=== PATIENT | female | born 1985 | race Caucasian/White ===

== ENCOUNTER 2018-02-02 22:04 | Inpatient (IN) | payer BC ==
--- NOTE | 2018-02-02 22:51 | HP ---
General Information - General Information Maternal Age: 32 Grav: 1 Para: 0 Estimated Due Date: 02/02/18 Determined By: LMP Maternal Blood Type and Rh: B Positive - Results this Serology/RPR Result: Non-Reactive Rubella Result: Immune HBsAg Result: Negative HIV Result: Negative GBS Culture Result: Negative Past Medical History Pertinent Past Medical History: Non-Contributory Past Medical History Comment: migraine Past Surgical History Comment: wisdom tooth extraction Pertinent Family History: See Records - Antepartal Records Antepartal Records: Reviewed, Complicated by: - pt carrier of several conditions, FOB not a carrier Review of Systems Constitutional: Uncomfortable CV Complaint: No Respiratory: Shortness of Breath: No Gastrointestinal: No Nausea/Vomiting Genitourinary: No Leaking Fluid Musculoskeletal: Contractions Neurological: No Headache Movement: Normal - Comments wants epidural Exam 98.2-68-18 99/65 - Measurements Height: 5 ft 4 in Weight: 167 lb Body Mass Index (BMI): 28.6 Pre- Weight: 140 lb - Exam Abdomen: No Upper Quadrant Pain Breast: - - soft, no masses CVA: No CVA Tenderness Extremities: No Edema Heart: Normal Rhythm/Heart Sounds HEENT: No Significant Findings Lungs: Clear Bilaterally Reflexes: DTR 2+ Thyroid: No Thyromegaly - Cervical Exam 7cm, 100%, vtx -1, bulging membranes - Abdominal Exam Abdomen Exam Comment: EFw 7.5 lbs - Membranes Membrane Status: Intact - Ultrasound/Biophysical Profile Ultrasound Status: Not Done EFM Findings - External Monitor Findings Baseline Heart Rate: 140 External Monitor Findings: Accelerations Present, No Pattern of Variable or Late Decelerations, Variability Moderate External Monitor Findings Comment: category 1 Contractions: Regular, Strong, 45-90 Seconds Contraction Frequency: every 2-3 minutes Assessment/Plan - Reason for Visit Reason for Visit: labor - Plan Plan: Active Labor Plan Comment: will admit, anticipate vaginal delivery Dr. Prater notified, will come to do epidural - Date/Time of Admission Date of Admission: 02/02/18 Time of Admission: 22:30
[2018-02-02] MEDS ORDERED: OBEPIDURAL* 250 ML EPIDURAL ONE (22:53)
[2018-02-02 22:59] LABS: ABS Basophils 0 10^3/ul (0-0.2); ABS Eosinophils 0.1 10^3/ul (0-0.6); ABS Lymphocytes 3.2 10^3/ul (1.0-4.8); ABS Monocytes 1.2 10^3/ul (0-0.8); ABS Neutrophils 10.7 10^3/ul (1.5-7.7); ABS Nucleated RBC 0 10^3/ul; Eosinophil % 0.4 % (0-6); Hematocrit 35 % (35-47); Hemoglobin 12.4 g/dl (12.0-16.0); Lymphocyte % 21.3 % (25-47); Mean Corpuscular HGB Conc 35 g/dl (31-36); Mean Corpuscular Hemoglobin 32 pg (27-31); Mean Corpuscular Volume 91 fL (80-97); Mean Platelet Volume 8.2 um3 (7.4-10.4); Nucleated Red Blood Cells % 0; Platelet Count 270 10^3/ul (150-450); Red Blood Count 3.86 10^6/ul (4.0-5.4); Red Cell Distribution Width 13 % (10.5-15); White Blood Count 15.1 10^3/ul (3.5-10.8)
[2018-02-02] MEDS ORDERED: EPHEDrine (Pressors)* 50 MG/ML VIAL IV PUSH PRN ×2 (23:38)
[2018-02-02] MEDS ORDERED: Phenylephrine IV* 40 MCG/ML 10 ML SYRINGE IV PUSH PRN ×2 (23:38)
[2018-02-02] MEDS ORDERED: Sodium Citrate/Citric Acid* 15 ML UDC PO PRN (23:38)
[2018-02-02] MEDS ORDERED: Famotidine TAB* 20 MG PO PRN (23:38)
[2018-02-02] MEDS ORDERED: OBEPIDURAL* 250 ML EPIDURAL SCH (23:45)
[2018-02-03] MEDS ORDERED: Oxytocin in LR* 20 UNITS/1,000 ML BAG IVPB ONE (01:01)
[2018-02-03] MEDS ORDERED: Oxytocin in LR* 20 UNITS/1,000 ML BAG IVPB SCH ×2 (02:00→05:00)
[2018-02-03] MEDS ORDERED: Lidocaine/Epinephrin 1.5%/200* 5 ML AMP INJ ONE (03:17)
[2018-02-03] MEDS ORDERED: Glycerin ADULT SUPP PR PRN (04:19)
[2018-02-03] MEDS ORDERED: Witch Hazel PAD* JAR TOPICAL PRN (04:19)
[2018-02-03] MEDS ORDERED: Dibucaine 1% 28.35 GM TUBE PR PRN (04:19)
[2018-02-03] MEDS ORDERED: Acetaminophen TAB* 325 MG PO PRN (04:19)
[2018-02-03] MEDS: Docusate CAP* 100 MG PO SCH ×3 (08:44→20:44)
[2018-02-03] MEDS: Ibuprofen TAB* 600 MG PO PRN ×2 (08:46→15:48)
[2018-02-03] MEDS: Simethicone TAB* 80 MG TAB.CHEW PO SCH ×2 (08:47→12:30)
[2018-02-03] MEDS ORDERED: oxyCODONE/Acetamin 5/325 MG* TAB PO PRN (20:36)
[2018-02-04] MEDS: Ibuprofen TAB* 600 MG PO PRN ×3 (01:20→14:32)
--- NOTE | 2018-02-04 05:37 | PTEDU ---
Patient Name: PEDRO CUELLO CUELLOPEDRO selected video: Follow Me Mum: [facility] Successful to view on 02/05/20 at 5:36:02 AM [place] [facility] [id number]
[2018-02-04 07:02] LABS: ABS Basophils 0 10^3/ul (0-0.2); ABS Eosinophils 0.1 10^3/ul (0-0.6); ABS Lymphocytes 3.5 10^3/ul (1.0-4.8); ABS Neutrophils 8.4 10^3/ul (1.5-7.7); ABS Nucleated RBC 0 10^3/ul; Eosinophil % 0.7 % (0-6); Hematocrit 31 % (35-47); Hemoglobin 10.8 g/dl (12.0-16.0); Lymphocyte % 27.1 % (25-47); Mean Corpuscular HGB Conc 35 g/dl (31-36); Mean Corpuscular Hemoglobin 33 pg (27-31); Mean Corpuscular Volume 92 fL (80-97); Mean Platelet Volume 8.5 um3 (7.4-10.4); Nucleated Red Blood Cells % 0.1; Platelet Count 228 10^3/ul (150-450); Red Blood Count 3.32 10^6/ul (4.0-5.4); Red Cell Distribution Width 13 % (10.5-15)
[2018-02-04 08:43] VITALS: BP 100/58
[2018-02-04] MEDS: Docusate CAP* 100 MG PO SCH ×2 (08:45→14:25)
[2018-02-04] MEDS ORDERED: Ferrous Gluconate TAB* 324 MG TAB PO SCH (09:00)
== END 2018-02-04 18:20 | disposition home or self-care (01) | DRG 560 ==
LOC: MCHOBOUT 22:04 → MCHOB 22:33
PROVIDERS: ADMIT Midwife; ATTEND Obstetrics & Gynecology
PROC: 10D07Z3 Extraction of Products of Conception, Low Forceps, Via Natural or Artificial Opening (ICD-10-PCS; principal; 2018-02-03)
PROC: 0KQM0ZZ Repair Perineum Muscle, Open Approach (ICD-10-PCS; 2018-02-03)
DX: O48.0 Post-term pregnancy (principal); E72.11 Homocystinuria; O70.1 Second degree perineal laceration during delivery; O99.284 Endocrine, nutritional and metabolic diseases complicating childbirth; O63.1 Prolonged second stage (of labor); Z3A.40 40 weeks gestation of pregnancy; Z37.0 Single live birth
CPT/HCPCS: 36415; 85025; 86850; 86900; 86901; A9270-GY

== ENCOUNTER 2018-08-06 10:35 | Emergency (ER) | payer BC ==
[2018-08-06 10:42] VITALS: BP 126/78
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
== END 2018-08-06 11:19 | disposition home or self-care (01) ==
LOC: UCEAST 10:35
DX: T24.111A Burn of first degree of right thigh, initial encounter (principal); T31.0 Burns involving less than 10% of body surface; X11.8XXA Contact with other hot tap-water, initial encounter; Y93.G9 Activity, other involving cooking and grilling; Y92.9 Unspecified place or not applicable
CPT/HCPCS: 99212; G0463

== ENCOUNTER 2019-02-27 20:40 | Emergency (ER) | payer BC ==
[2019-02-27 20:54] VITALS: BP 115/77
[2019-02-27] MEDS ORDERED: Cephalexin CAP* 500 MG PO ONE (21:03)
--- NOTE | 2019-02-27 21:13 | UC ---
Skin Complaint HPI - HPI Summary HPI Summary: 33-year-old female presents with complaints of a red swollen area to her right upper arm. States symptoms began 3 days ago. Initially appeared like a "pimple ". States over the last 2 days to redness has progressively increased. No known injury. Denies fever, chills, or drainage. Patient is presently breast- feeding. - History of Current Complaint Chief Complaint: UCSkin Time Seen by Provider: 02/27/19 20:56 Stated Complaint: SKIN COMPLAINT Hx Obtained From: Patient Hx Last Menstrual Period: ; no period since April 2017 Pain Intensity: 0 - Allergy/Home Medications Allergies/Adverse Reactions: Allergies Allergy/AdvReac Type Severity Reaction Status Date / Time No Known Allergies Allergy Verified 02/03/18 00:47 PMH/Surg Hx/FS Hx/Imm Hx Previously Healthy: Yes - Denies significant PMH - Surgical History Surgical History: None Surgery Procedure, Year, and Place: denies - Family History Known Family History: Positive: Diabetes - Social History Occupation: Employed Full-time Lives: With Family Alcohol Use: Weekly Substance Use Type: None Smoking Status (MU): Never Smoked Tobacco - Immunization History Most Recent Influenza Vaccination: 07/04/17 Most Recent Tetanus Shot: UTD Most Recent Pneumonia Vaccination: none Review of Systems All Other Systems Reviewed And Are Negative: Yes Constitutional: Negative: Fever, Chills Skin: Positive: Other - See HPI Respiratory: Positive: Negative Cardiovascular: Positive: Negative Gastrointestinal: Positive: Negative Genitourinary: Positive: Negative Musculoskeletal: Positive: Negative Neurological: Positive: Negative Is Patient Immunocompromised?: No Physical Exam - Summary Physical Exam Summary: GENERAL APPEARANCE: Well developed, well nourished, alert and cooperative, and appears to be in no acute distress. CARDIAC: Normal S1 and S2. No S3, S4 or murmurs. Rhythm is regular. There is no peripheral edema, cyanosis or pallor. Extremities are warm and well perfused. Capillary refill is less than 2 seconds. Peripheral pulses intact. LUNGS: Clear to auscultation without rales, rhonchi, wheezing or diminished breath sounds. ABDOMEN: Positive bowel sounds. Soft, nondistended, nontender. No guarding or rebound. No masses or hepatosplenomegally. MUSKULOSKELETAL: ROM intact to all extremities. No joint erythema or tenderness. Normal muscular development. Normal gait. SKIN: 1 cm circular area of tender induration with erythema extending initial 2.5 cm around the outer margin of the induration. Mildly warm to touch, no fluctuance noted. Triage Information Reviewed: Yes Vital Signs: Initial Vital Signs Temp 99.3 F 02/27/19 20:50 Pulse 65 02/27/19 20:50 Resp 16 02/27/19 20:50 BP 115/77 02/27/19 20:50 Pulse Ox 100 02/27/19 20:50 Vital Signs Reviewed: Yes Course/Dx - Course Course Of Treatment: 33-year-old female presents with complaints of a red swollen area to her right upper arm. States symptoms began 3 days ago. Initially appeared like a "pimple ". States over the last 2 days to redness has progressively increased. No known injury. Denies fever, chills, or drainage. Patient is presently breast- feeding. Afebrile. Vital signs stable. Exam reveals a 1 cm circular area of tender induration with erythema extending initial 2.5 cm around the outer margin of the induration. Mildly warm to touch, no fluctuance noted. I will start her on cephalexin 500 mg 4 times a day 5 days for a cellulitis secondary to folliculitis. She was given the first dose in the clinic and provided a dose from the morning until she can crop picker the prescription from the pharmacy. She is to use [id number] analgesics as needed for pain and I am recommending hot packing as well. She is to return here or follow up with her primary care provider in 3 days if no improvement in her symptoms. Anticipatory guidance and warning symptoms were reviewed with the patient. Verbalizes understanding and agrees with plan of care. - Differential Diagnoses - Skin Complaint Differential Diagnoses: Cellulitis, Local Allergic Reaction, MRSA - Diagnoses Provider Diagnosis: Cellulitis of right arm Discharge - Sign-Out/Discharge Documenting (check all that apply): Patient Departure All imaging exams completed and their final reports reviewed: No Studies - Discharge Plan Condition: Stable Disposition: HOME Prescriptions: Cephalexin CAP* [Keflex 500 CAP*] 500 mg PO QID #18 cap Patient Education Materials: Cellulitis (ED) Referrals: Joanne Mullins MD [Primary Care Provider] - 3 Days Additional Instructions: You appear to have an infection of the skin called cellulitis secondary to an infected hair follicle. We will start you on an antibiotic to treat the infection. Take cephalexin 500 mg 1 capsule four times a day for 5 days. We gave you the first dose in the clinic tonight and provided you with a dose for in the morning. To a hot moist compress to the affected area at least 4 times a day to help promote any drainage. Take [id number] acetaminophen (Tylenol) or ibuprofen (3 Advil, Motrin) according to directions as needed for pain. Return here with your primary care provider in 3 days if symptoms are not improving. Seek immediate medical attention in the emergency room if you develop fever greater than 100.5 F, the redness continues to spread, you have increased swelling, pain that is not managed by the pain medication, or any worsening of symptoms. - Billing Disposition and Condition Condition: STABLE Disposition: Home - Attestation Statements Provider Attestation: I was available for consult. Pt not seen by me.
== END 2019-02-27 21:30 | disposition home or self-care (01) ==
LOC: UCEAST 20:40
DX: L03.113 Cellulitis of right upper limb (principal)
CPT/HCPCS: 99212; A9270-GY; G0463

== ENCOUNTER 2020-02-11 08:17 | Inpatient (IN) | payer BC ==
[2020-02-11] MEDS ORDERED: Buffered Lidocaine 1% SYRIN* 1 ML/SYRINGE INTRADERM ONE (09:11)
[2020-02-11] MEDS ORDERED: Lactated Ringers 1000 ML Bag* 1,000 ML IV ONE ×2 (09:11→10:41)
[2020-02-11] MEDS ORDERED: Oxytocin in LR* 20 UNITS/1,000 ML BAG IVPB ONE (09:13)
--- NOTE | 2020-02-11 09:19 | HP ---
General Information - Reason for Visit 34yo, , IUP@40+1 here for an elective IOL - General Information Maternal Age: 34 Grav: 2 Para: 0 SAB: 0 IEA: 0 Estimated Due Date: 02/10/20 Determined By: LMP Gestational Age in Weeks/Days: 40+1 Maternal Blood Type and Rh: B Positive - Results this Serology/RPR Result: Non-Reactive Rubella Result: Immune HBsAg Result: Negative HIV Result: Negative GBS Culture Result: Negative Past Medical History Delivery History: Hx Complicated Vaginal Delivery - prolonged second stage, low forcep delivery Pertinent Past Medical History: See Records Past Medical History Comment: Migraine - with aura Pertinent Past Surgical History: See Records Past Surgical History Comment: wisdom tooth extraction Pertinent Family History: See Records Family History Comment: Father: hypercholesterolemia, back issues, obesity (s/p gastric sleeve) Mother: Migraine, lung cancer (remission), arthritis, hypothyroidism PGM: ovarian cancer MGM: ovarian cancer MGF: CAD - Antepartal Records Antepartal Records: Reviewed, Uncomplicated Review of Systems Constitutional: Comfortable CV Complaint: No Respiratory: Shortness of Breath: No Gastrointestinal: No Nausea/Vomiting Genitourinary: No Dysuria, No Bleeding, No Leaking Fluid Musculoskeletal: Contractions - occasional Neurological: No Headache, No Visual Changes Movement: Normal Exam Allergies/Adverse Reactions: Allergies No Known Allergies Allergy (Verified 02/03/18 00:47) Temp 98.3 HR 68, BP 129/86, RR 17, O2 100% - Measurements Height: 5 ft 4 in Weight: 166 lb Weight in lbs: 166.003598 Body Mass Index (BMI): 28.5 Pre- Weight: 140 lb Weight Gained This : 26 lbs and 0 ozs - Exam Breast: Breast Exam Deferred CVA: No CVA Tenderness Extremities: Edema HEENT: No Significant Findings Rectal: Rectal Exam Deferred - Abdominal Exam Abdomen Exam: Non-Tender - Ultrasound/Biophysical Profile Ultrasound Status: Not Done Targeted Exam Findings Estimated Weight: 7lbs Cervical Exam: 3cm Effacement: 80% Station: -1 Presenting Part: Vertex Membrane Status: AROM Bleeding/Discharge: None EFM Findings - External Monitor Findings Baseline Heart Rate: 145 External Monitor Findings: Accelerations Present, No Pattern of Variable or Late Decelerations, Variability Moderate, Baseline Stable External Monitor Findings Comment: No evidence of metabolic acidemia Contractions: Irregular Assessment/Plan - Assessment , IUP@40+1, here for an elective IOL GBS negative, B+, RI Uncomplicated , hx of low forceps delivery Vital signs stable No evidence of metabolic acidemia Occasional contraction PARQ discussion about IOL. Agrees to AROM and Pitocin. IV, labs, start low-dose pitocin. Monitor per protocol. Desires Epidural when uncomfortable. Dr. Asher to special. Anticipate progression to active labor and - Plan Plan: Admit - Anticipate Vaginal Delivery - Date/Time of Admission Date of Admission: 02/11/20 Time of Admission: 08:00
[2020-02-11] MEDS ORDERED: Lactated Ringers 1000 ML Bag* 1,000 ML IV SCH ×3 (10:00→14:00)
[2020-02-11] MEDS ORDERED: Oxytocin in LR* 20 UNITS/1,000 ML BAG IVPB SCH ×2 (10:00→14:00)
[2020-02-11 10:10] LABS: ABS Eosinophils 0.1 10^3/ul (0-0.6); ABS Lymphocytes 2.1 10^3/ul (1.0-4.8); ABS Monocytes 0.8 10^3/ul (0-0.8); ABS Neutrophils 5.7 10^3/ul (1.5-7.7); Eosinophil % 0.7 %; Hematocrit 36 % (35-47); Hemoglobin 12.6 g/dL (12.0-16.0); Mean Corpuscular HGB Conc 35 g/dL (31-36); Mean Corpuscular Hemoglobin 32 pg (27-31); Mean Corpuscular Volume 92 fL (80-97); Mean Platelet Volume 9.4 fL (7.4-10.4); Platelet Count 245 10^3/uL (150-450); Red Blood Count 3.87 10^6 /uL (3.70-4.87); Red Cell Distribution Width 14 % (10-15); White Blood Count 8.8 10^3/uL (3.5-10.8)
--- NOTE | 2020-02-11 10:12 | PN ---
Progress Note - Progress Note Date of Service: 02/11/20 Note: Called by RN, pt becoming more uncomfortable. Pt would like epidural now. Anesthesia notified. Waiting on CBC.
[2020-02-11] MEDS ORDERED: OBEPIDURAL* 250 ML EPIDURAL ONE (10:13)
[2020-02-11] MEDS ORDERED: Bupivacaine 0.25% SDV PF* 10 ML VIAL INJ ONE (10:15)
[2020-02-11 10:37] LABS: Urine Benzodiazepine Screen None Detected (None Detect); Urine Opiates Screen None Detected (None Detect)
[2020-02-11] MEDS ORDERED: Phenylephrine 40 MCG/ML SYRINGE IV PUSH PRN (10:41)
[2020-02-11] MEDS ORDERED: Famotidine TAB* 20 MG PO PRN (10:41)
[2020-02-11] MEDS ORDERED: Sodium Citrate/Citric Acid* 15 ML UDC PO PRN (10:41)
[2020-02-11] MEDS ORDERED: EPHEDrine (Pressors)* 50 MG/ML VIAL IV PUSH PRN (10:41)
[2020-02-11] MEDS ORDERED: OBEPIDURAL* 250 ML EPIDURAL SCH (11:00)
--- NOTE | 2020-02-11 11:36 | PN ---
Progress Note - Progress Note Date of Service: 02/11/20 Note: S: Pt is comfortable with CEI. Aware of contractions, denies pressure/urge to push. O: FHR 120, moderate variability, +accels, no decels Ctx: 2 mins VE: 9/100/+1, +bloody show Pitocin@2mU A: IUP@40+1 Active labor No evidence of metabolic acidemia Regular contractions P: D/c Pitocin Anticipate
[2020-02-11] MEDS ORDERED: Glycerin ADULT SUPP PR PRN (13:08)
[2020-02-11] MEDS ORDERED: Witch Hazel PAD* JAR TOPICAL PRN (13:08)
[2020-02-11] MEDS ORDERED: Acetaminophen TAB* 325 MG PO PRN (13:08)
[2020-02-11] MEDS ORDERED: Dibucaine 1% 28.35 GM TUBE PR PRN (13:08)
--- NOTE | 2020-02-11 13:12 | PROCNOTE ---
[facility] OB: Delivery Note - Delivery A Date of : 02/11/20 Time of : 12:29 [place] Sex: Female Weight at : 7 lb 5 oz Score 1 Minute: 9 Score 5 Minutes: 9 Gestational Age in Weeks and Days at Delivery: 40 Weeks and 1 Days Delivery Method: Spontaneous Vaginal Labor: Induced Did Patient attempt ?: N/A, No Previous Amniotic Fluid: Clear Estimated Blood Loss: 600 Anesthesia/Analgesia: CEI for Labor Delivered By: Nissa Duncan Nursery Level of Nursery: Regular/Bedside - Perineum Perineal Injury: 1st Degree Perineal Repair: By Delivering Practioner - Events Delivery Events of Note: Pitocin During Labor - Additional Delivery Notes Additional Delivery Notes: admitted to L&D for an elective IOL at 40+1. Following AROM and Pitocin, she quickly progressed to complete and complete with good relief from CEI. Category I tracing throughout labor and . Strong maternal pushing efforts led to spontaneous vaginal delivery of head OA to SUHAIL, with left compound hand; shoulders followed easily. Female placed on maternal abdomen. HR> 110, Apgars 9 and 9. Cord doubly clamped and cut by 's father once pulsations ceased. Pitocin given via IVPB for active management of 3rd stage. Placenta delivered spontaneously via villar, appears intact, 3vc. Perineum and vagina inspected - first degree perineal laceration noted. Repaired in the usual fashion under 1% lidocaine with CEI infusing. Normal anatomy restored. EBL 600mL. Mom and baby stable at time of note. Baby attempting to breastfeed.
[2020-02-11] MEDS: Ibuprofen TAB* 600 MG PO SCH ×2 (14:07→20:11)
[2020-02-11] MEDS: Docusate CAP* 100 MG PO SCH ×2 (14:08→20:11)
[2020-02-11] MEDS ORDERED: Methylergonovine INJ* 0.2 MG/ML 1ML AMP IM PRN (15:03)
[2020-02-11] MEDS ORDERED: Lidocaine 1% INJ* 10 MG/ML 30 ML SDV ONE (15:30)
[2020-02-11] MEDS ORDERED: Simethicone TAB* 80 MG TAB.CHEW PO SCH (17:30)
[2020-02-12] MEDS: Ibuprofen TAB* 600 MG PO SCH ×2 (02:31→08:26)
[2020-02-12 06:14] LABS: ABS Eosinophils 0.1 10^3/ul (0-0.6); ABS Lymphocytes 2.5 10^3/ul (1.0-4.8); ABS Monocytes 0.9 10^3/ul (0-0.8); ABS Neutrophils 8.1 10^3/ul (1.5-7.7); Eosinophil % 0.7 %; Hematocrit 30 % (35-47); Hemoglobin 10.3 g/dL (12.0-16.0); Lymphocyte % 21.8 %; Mean Corpuscular HGB Conc 34 g/dL (31-36); Mean Corpuscular Hemoglobin 32 pg (27-31); Mean Corpuscular Volume 94 fL (80-97); Mean Platelet Volume 8.5 fL (7.4-10.4); Platelet Count 201 10^3/uL (150-450); Red Blood Count 3.22 10^6 /uL (3.70-4.87); Red Cell Distribution Width 14 % (10-15); White Blood Count 11.6 10^3/uL (3.5-10.8)
[2020-02-12] MEDS ORDERED: Ferrous Gluconate TAB* 324 MG TAB PO SCH (09:00)
[2020-02-12] MEDS: Docusate CAP* 100 MG PO SCH ×2 (09:00→13:29)
[2020-02-12 09:01] VITALS: BP 121/69
== END 2020-02-12 14:20 | disposition home or self-care (01) | DRG 560 ==
LOC: MCHOBOUT 08:17 → MCHOB 09:10
PROVIDERS: ADMIT Advanced Practice Midwife; ATTEND Advanced Practice Midwife
PROC: 10E0XZZ Delivery of Products of Conception, External Approach (ICD-10-PCS; principal; 2020-02-11)
PROC: 3E033VJ Introduction of Other Hormone into Peripheral Vein, Percutaneous Approach (ICD-10-PCS; 2020-02-11)
PROC: 10907ZC Drainage of Amniotic Fluid, Therapeutic from Products of Conception, Via Natural or Artificial Opening (ICD-10-PCS; 2020-02-11)
PROC: 0HQ9XZZ Repair Perineum Skin, External Approach (ICD-10-PCS; 2020-02-11)
DX: O48.0 Post-term pregnancy (principal); Z37.0 Single live birth; Z3A.40 40 weeks gestation of pregnancy; O70.0 First degree perineal laceration during delivery; O32.6XX0 Maternal care for compound presentation, not applicable or unspecified
CPT/HCPCS: 36415; 80307; 85025; 86850; 86900; 86901; A9270-GY; G0480; J3490